=== PATIENT | male | born 1990 | race Caucasian/White ===

== ENCOUNTER 2016-08-06 02:28 | Emergency (ER) | payer MEDICAID ==
[2016-08-06 02:38] VITALS: BP 128/83; PULSE 98; RESP 18; TEMP 98.6; O2SAT 98
--- NOTE | 2016-08-06 03:02 | ED PDOC ---
HPI: General Adult Time Seen by Provider: 08/06/16 02:51 Chief Complaint (Nursing): Headache Chief Complaint (Provider): headache, heartburn History Per: Patient Additional Complaint(s): 26-year-old male presents to emergency department for evaluation of persistent heartburn and acid reflux for over one year. While he was incarcerated he was being given a medication that helped the symptoms. Since he has been out of custodial for the past 3 months he has been taking Zantac but this has not helped. Patient does not know the name of the medication that he used to take for his heartburn. He denies associated abdominal pain, denies any vomiting. Patient admits that his diet is likely causing his symptoms. Past Medical History Reviewed: Historical Data, Nursing Documentation, Vital Signs Vital Signs: Last Vital Signs Temp 98.6 F 08/06/16 02:36 Pulse 98 H 08/06/16 02:36 Resp 18 08/06/16 02:36 BP 128/83 08/06/16 02:36 Pulse Ox 98 08/06/16 03:41 - Medical History PMH: GERD - Surgical History Surgical History: No Surg Hx - Family History Family History: States: No Known Family Hx - Living Arrangements Living Arrangements: With Family - Social History Current smoker - smoking cessation education provided: No Alcohol: None Drugs: Denies - Home Medications Home Medications: Ambulatory Orders Medication Instructions Recorded oxyCODONE/Acetaminophen [Percocet 1 ea PO Q6H PRN #10 tab 02/26/16 5/325 mg Tab] Omeprazole Magnesium [Prilosec Otc] 20 mg PO DAILY #30 tab 08/06/16 - Allergies Allergies/Adverse Reactions: Allergies Allergy/AdvReac Type Severity Reaction Status Date / Time No Known Allergies Allergy Verified 02/26/16 13:32 Review of Systems ROS Statement: Except As Marked, All Systems Reviewed And Found Negative Constitutional: Negative for: Fever Cardiovascular: Negative for: Chest Pain, Palpitations Gastrointestinal: Positive for: Other (acid reflux). Negative for: Nausea, Vomiting, Abdominal Pain, Diarrhea, Constipation, Melena, Hematochezia, Hematemesis, Rectal Pain Physical Exam - Reviewed Nursing Documentation Reviewed: Yes Vital Signs Reviewed: Yes - Physical Exam Appears: Positive for: Well, Non-toxic, No Acute Distress Skin: Negative for: Rash Eye Exam: Positive for: Normal appearance, EOMI, PERRL Cardiovascular/Chest: Positive for: Regular Rate, Rhythm Respiratory: Positive for: Normal Breath Sounds Gastrointestinal/Abdominal: Positive for: Normal Exam, Soft. Negative for: Tenderness Back: Negative for: L CVA Tenderness, R CVA Tenderness Neurologic/Psych: Positive for: Alert, Oriented - ECG O2 Sat by Pulse Oximetry: 98 Pulse Ox Interpretation: Normal Medical Decision Making Medical Decision Making: Impression: acid reflux. Patient is well-appearing, in no acute distress, abdominal exam is benign Patient was medicated with Mylanta and Pepcid. He feels better after these medications were given. Patient was given prescription for Prilosec. He was referred to clinic for follow-up. Disposition - Clinical Impression Clinical Impression: Acid reflux - Patient ED Disposition Is Patient to be Admitted: No Counseled Patient/Family Regarding: Diagnosis, Need For Followup, Rx Given - Disposition Referrals: [facility] [Outside] Disposition: Routine/Home Disposition Time: 05:03 Condition: STABLE Additional Instructions: Take medications as directed. Modify your diet to avoid further symptoms. Follow -up with clinic or primary doctor. Prescriptions: Omeprazole Magnesium [Prilosec Otc] 20 mg PO DAILY #30 tab Instructions: Diet for Ulcers and Gastritis (ED), Gastroesophageal Reflux Disease (ED)
[2016-08-06] MEDS ORDERED: Alum-Mag Hydrox-Simethicone Susp (30 mL) PO STA (03:41)
== END 2016-08-06 06:16 | disposition home or self-care (01) ==
LOC: H.ER 02:28
DX: K21.9 Gastro-esophageal reflux disease without esophagitis (principal); R51 Headache

== ENCOUNTER 2018-07-13 18:10 | Emergency (ER) | payer MEDICAID ==
[2018-07-13 18:20] VITALS: BP 148/96; PULSE 86; RESP 16; TEMP 98.2; O2SAT 98
--- NOTE | 2018-07-13 19:59 | ED PDOC ---
HPI: Psych/Substance Abuse Time Seen by Provider: 07/13/18 18:15 Chief Complaint (Nursing): Psychiatric Evaluation Chief Complaint (Provider): Psychiatric Evaluation History Per: Patient, EMS Onset/Duration Of Symptoms: Hrs (P[employer]ER) Additional Complaint(s): 28 year old male with a PMHx of Depression presents to the ED via [place] [employer] for psychiatric evaluation. As per EMS, patients biological technical officer received text with patient stating that he wanted to kill himself by jumping off a bridge. He states that his Baby mama does not want him to have fun. Patient adamantly denies SI at present, HI, auditory or visual hallucinations and previous suicide attempts. He follows up with his psychiatrist for treatment of depression. Patient has no physical complaints at this time. He has been on probation for 6 months. PMD: None provided Past Medical History Reviewed: Historical Data, Nursing Documentation, Vital Signs Vital Signs: Last Vital Signs Temp 98.2 F 07/13/18 18:16 Pulse 86 07/13/18 18:16 Resp 16 07/13/18 18:16 BP 148/96 H 07/13/18 18:16 Pulse Ox 98 07/13/18 18:16 - Medical History PMH: Depression, GERD Denies: HIV - Family History Family History: States: Unknown Family Hx - Social History Current smoker - smoking cessation education provided: Yes (Half pack a day for 10 years) Ex-Smoker (has not smoked in the last 12 months): No Alcohol: None Drugs: Denies - Home Medications Home Medications: Ambulatory Orders Medication Instructions Recorded oxyCODONE/Acetaminophen [Percocet 1 ea PO Q6H PRN #10 tab 02/26/16 5/325 mg Tab] Omeprazole Magnesium [Prilosec Otc] 20 mg PO DAILY #30 tab 08/06/16 - Allergies Allergies/Adverse Reactions: Allergies Allergy/AdvReac Type Severity Reaction Status Date / Time No Known Allergies Allergy Verified 07/13/18 18:16 Review of Systems ROS Statement: Except As Marked, All Systems Reviewed And Found Negative Psych: Positive for: Other (No HI, no auditory or visual hallucinations). Negative for: Anxiety, Depression, Psychosis, Suicidal ideation Physical Exam - Reviewed Nursing Documentation Reviewed: Yes Vital Signs Reviewed: Yes - Physical Exam Appears: Positive for: Well Head Exam: Positive for: ATRAUMATIC Skin: Positive for: Normal Color Cardiovascular/Chest: Positive for: Regular Rate, Rhythm Respiratory: Positive for: Normal Breath Sounds. Negative for: Respiratory Distress Neurological/Psych: Positive for: Awake, Alert, Oriented (X3), Mood/Affect (appropriate), Other (Coherent speech) - ECG O2 Sat by Pulse Oximetry: 98 (RA) Pulse Ox Interpretation: Normal Medical Decision Making Medical Decision Making: Time: 18:47 Plan: --1:1 --crisis evaluation Evaluated by derrick worker well service. Stable for d/c home as per Dr. Johns with diagnosis of depression. ScribeAttestation: Documented byAbel Asencio, acting as a scribe for Doreen Chen PA-C. Provider ScribeAttestation: All medical record entries made by the Scribe were at my direction and personally dictated by me. I have reviewed the chart and agree that the record accurately reflects my personal performance of the history, physical exam, medical decision making, and the department course for this patient. I have also personally directed, reviewed, and agree with the discharge instructions and disposition. Disposition - Clinical Impression Clinical Impression: Encounter for psychiatric assessment - Patient ED Disposition Is Patient to be Admitted: No Discussed With DrArnaldo: Mark Johns - Disposition Referrals: Mabel Lewis MD [Medical Doctor] - Disposition: Routine/Home Disposition Time: 23:00 Condition: STABLE Forms: [employer] ([employer]) Print Language: PASHTO
== END 2018-07-13 23:10 | disposition home or self-care (01) ==
LOC: H.ER 18:10
DX: Z04.6 Encounter for general psychiatric examination, requested by authority (principal)